=== PATIENT | male | born 1985 | race American Indian/Alaskan Native ===

== ENCOUNTER 2017-10-13 22:35 | Emergency (ER) | payer SELFPAY ==
[2017-10-14] MEDS ORDERED: CLEOCIN IM ONE (07:59)
[2017-10-14] MEDS ORDERED: BOOSTRIX IM ONE (07:59)
--- NOTE | 2017-10-14 08:12 | Emergency Department Report ---
HPI - General Chief Complaint: Wound/Laceration Time Seen by Provider: 10/14/17 07:59 - HPI HPI: Patient is a 32-year-old male with no prior medical condition who presents to ED complaining of sustaining an injury to his left handy about 5-6 days ago. Patient states he hit his handy on a rusted trailer. Patient states on the date When he cleaned it with peroxide but after that listed alone. Patient states today to wound is healed and scabbed over but has some mild swelling around the wound. He denies seizures as chills/nausea/vomiting/dizziness as chest pain shortness of breath with any other symptoms since incident ED Past Medical Hx - Past Medical History Additional medical history: OBESITY - Surgical History Past Surgical History?: No - Social History Smoking Status: Never Smoker Substance Use Type: None - Medications Home Medications: Home Medications Medication Instructions Recorded Confirmed Last Taken Type Cephalexin [Keflex] 500 mg PO BID #12 capsule 10/14/17 Unknown Rx ED Review of Systems ROS: Stated complaint: LACERATION LEFT LEG Other details as noted in HPI Constitutional: denies: chills, fever Eyes: denies: eye pain, eye discharge, vision change ENT: denies: ear pain, throat pain Respiratory: denies: cough, shortness of breath, wheezing Cardiovascular: denies: chest pain, palpitations Endocrine: no symptoms reported Gastrointestinal: denies: abdominal pain, nausea, diarrhea Genitourinary: denies: urgency, dysuria Musculoskeletal: denies: back pain, joint swelling, arthralgia Skin: denies: rash, lesions Neurological: denies: headache, weakness, paresthesias Psychiatric: denies: anxiety, depression Hematological/Lymphatic: denies: easy bleeding, easy bruising Physical Exam - Physical Exam Vital Signs: Vital Signs 10/13/17 23:02 Temperature 97.9 F Pulse Rate 89 Respiratory 20 Rate Blood Pressure 154/92 O2 Sat by Pulse 97 Oximetry Physical Exam: GENERAL: Alert and oriented x3, no apparent distress, Normal Gait, atraumatic. HEAD: Head is normocephalic and a-traumatic. LUNGS: Symetrical with respiration, No wheezing, no rales or crackles, CTAB. HEART: S1, S2 present, regular rate and rhythm without murmur, no rubs, no gallops. Non tender to palpation EXTREMITIES/MUSCULOSKELETAL: No cyanosis, clubbing, rash, lesions or edema. Full ROM bilaterally. UE/LE Pulses 2+ bilaterally. LE and UE 5+ strength bilaterally, NEUROLOGIC: The patient is cooperative with no focal neurologic deficits. SKIN: Warm and dry, moderately healed wound on the anterior lower handy after left leg, mild swelling around wound, Nontender to palpation. Nonerythematous. No other lesions, No ulceration or induration present. ED Course Vital Signs 10/13/17 23:02 Temperature 97.9 F Pulse Rate 89 Respiratory 20 Rate Blood Pressure 154/92 O2 Sat by Pulse 97 Oximetry ED Medical Decision Making - Medical Decision Making 32-year-old male presents with wound to the left handy. ED course: Patient received tetanus booster in ED, clindamycin IM. I discussed with the patient to keep wound clean and clean daily. Discussed the patient will follow up with primary care physician in 3-5 days. Pt will be sent home on antibiotics Vital signs are normal patient is in no acute distress. Critical care attestation.: If time is entered above; I have spent that time in minutes in the direct care of this critically ill patient, excluding procedure time. ED Disposition Clinical Impression: Abrasion of skin Injury of left handy Qualifiers: Encounter type: initial encounter Qualified Code(s): S89.92XA - Unspecified injury of left lower leg, initial encounter Disposition: TO HOME OR SELFCARE Is pt being admited?: No Does the pt Need Aspirin: No Condition: Stable Instructions: Acute Wound Care (ED) Additional Instructions: Make sure to follow up with the primary care physician as discussed. Take all your medications as you've been prescribed. If you have any worsening symptoms or develop new symptoms please return to ED immediately. Clean wound properly daily. Apply Neosporin to wound daily. Prescriptions: Cephalexin [Keflex] 500 mg PO BID #12 capsule Referrals: WILDER RAMSAY MD [Primary Care Provider] - 3-5 Days Forms: Accompanied Note, Work/School Release Form(ED) Time of Disposition: 08:29
[2017-10-14 08:46] VITALS: BP 137/95
== END 2017-10-14 08:45 | disposition home or self-care (01) ==
LOC: ED 22:35
DX: S80.812A Abrasion, left lower leg, initial encounter (principal); W22.8XXA Striking against or struck by other objects, initial encounter; Y93.89 Activity, other specified; Y99.8 Other external cause status; Y92.89 Other specified places as the place of occurrence of the external cause
CPT/HCPCS: 90471; 90715; 96372